=== PATIENT | male | born 1960 | race Caucasian/White ===

== ENCOUNTER 2020-02-10 16:11 | Emergency (ER) | payer MEDICARE ==
[~2020-02-10] VITALS: Ht 185.4 cm; Wt 96.0 kg
[~2020-02-10 16:11] MED LIST: CLON1TAB PO; QUET400T7 PO
[2020-02-10 16:13] VITALS: BP 126/71
[2020-02-10 17:21] LABS: BASOPHILS # (AUTO) 0.09 x10^3/uL (0-0.1); BASOPHILS % (AUTO) 1 % (0-1); EOSINOPHILS # (AUTO) 0.34 x10^3/uL (0-0.4); EOSINOPHILS % (AUTO) 3 % (1-7); LYMPHOCYTES # (AUTO) 3.22 x10^3/uL (1-3.4); LYMPHOCYTES % (AUTO) 27 % (22-44); MD NO; MEAN CORPUSCULAR HEMOGLOBIN 31.1 pg (27.5-34.5); MEAN CORPUSCULAR HGB CONC 33.4 g/dL (33.2-36.2); MEAN CORPUSCULAR VOLUME 93.3 fL (81-97); MEAN PLATELET VOLUME 7.4 fL (7.4-10.4); MONOCYTES % (AUTO) 10 % (2-9); NEUTROPHILS % (AUTO) 60 % (42-75); PLATELET COUNT 329 x10^3/uL (130-400); RED BLOOD COUNT 4.39 x10^6/uL (4.38-5.82); RED CELL DISTRIBUTION WIDTH 14.5 % (9.4-14.8)
[2020-02-10 17:31] LABS: ALANINE AMINOTRANSFERASE 33 U/L (12-78); ALBUMIN 3.9 g/dL (3.4-5.0); ANION GAP 4 mmol/L (5-15); CALCIUM 9.3 mg/dL (8.5-10.1); CHLORIDE 108 mmol/L (98-107); CREATININE 1.01 mg/dL (0.7-1.3)
[2020-02-10 17:34] LABS: ALKALINE PHOSPHATASE 102 U/L (45-117); BILIRUBIN,TOTAL 0.7 mg/dL (0.2-1.0); TOTAL PROTEIN 8.5 g/dL (6.4-8.2)
--- NOTE | 2020-02-10 17:38 | NUR ---
SAMPLE STITCHER: PT TO ROOM FROM LOBBY AT THIS TIME
--- NOTE | 2020-02-10 17:49 | NUR ---
PT INFORMED ANA THAT HE WANTED A HAND JOB AND THEN PT PROCEEDED TO FORNICATE WITH AMBU BAG AND THEN PEED ON OTHE ADULT AMBU BAG. PT HAD SECURITY CALLED DUE TO INAPPROPRITATE BEHAVIOR. SAMY PORRAS MADE AWARE.
== END 2020-02-10 17:53 | disposition home or self-care (01) ==
LOC: ED 17:47
DX: R53.1 Weakness (principal); R53.83 Other fatigue
CPT/HCPCS: 36415; 80053; 85025; 99283

== ENCOUNTER 2020-03-06 17:05 | Inpatient (IN) | payer MEDICARE, MEDICAID ==
[~2020-03-06] VITALS: Ht 182.9 cm; Wt 11.7 kg
--- NOTE | 2020-03-06 20:21 | NUR ---
Break rn: Labs drawn at this time. No immediate needs from pt. Awaiting telepsych consult.
[2020-03-06 20:29] LABS: BASOPHILS # (AUTO) 0.04 x10^3/uL (0-0.1); BASOPHILS % (AUTO) 1 % (0-1); EOSINOPHILS # (AUTO) 0.26 x10^3/uL (0-0.4); EOSINOPHILS % (AUTO) 3 % (1-7); LYMPHOCYTES # (AUTO) 2.39 x10^3/uL (1-3.4); LYMPHOCYTES % (AUTO) 27 % (22-44); MD NO; MEAN CORPUSCULAR HEMOGLOBIN 30.4 pg (27.5-34.5); MEAN PLATELET VOLUME 7.4 fL (7.4-10.4); MONOCYTES # (AUTO) 1.03 x10^3/uL (0.2-0.8); MONOCYTES % (AUTO) 12 % (2-9); NEUTROPHILS # (AUTO) 5.13 x10^3/uL (1.8-6.8); NEUTROPHILS % (AUTO) 58 % (42-75); PLATELET COUNT 269 x10^3/uL (130-400); RED BLOOD COUNT 3.71 x10^6/uL (4.38-5.82); RED CELL DISTRIBUTION WIDTH 13.9 % (9.4-14.8)
[2020-03-06 20:38] LABS: ALBUMIN 2.9 g/dL (3.4-5.0); ANION GAP 7 mmol/L (5-15); CHLORIDE 109 mmol/L (98-107); SALICYLATE LEVEL < 1.7 mg/dL (2.8-20.0)
--- NOTE | 2020-03-06 21:23 | NUR ---
PSYCH CONSULT TAKING PLACE
[2020-03-06] MEDS ORDERED: SODIUM CHLORIDE 0.9% 1,000ML IVBOLUS ONE (23:00)
[2020-03-06] MEDS ORDERED: IBUPROFEN 200 MG TABLET ONE (23:50)
--- NOTE | 2020-03-06 23:52 | NUR ---
JUICE PROVIDED TO PATIENT. UA SENT. PT CONTINUES TO HAVE DISORGANIZED THOUGHTS AND AUDITORY HALLUCINATIONS
[2020-03-06 23:59] LABS: MICROSCOPIC INDICATED
[2020-03-07] MEDS ORDERED: IBUPROFEN 200 MG TABLET PO ONE
[2020-03-07 00:07] LABS: AMPHETAMINE SCREEN, URINE Negative (Negative); BARBITURATE SCREEN, URINE Negative (Negative); BENZODIAZEPINE SCREEN, URINE Negative (Negative); CANNABINOID SCREEN, URINE Negative (Negative); COCAINE SCREEN, URINE Negative (Negative); METHADONE SCREEN, URINE Negative (Negative); OPIATE SCREEN, URINE Negative (Negative)
[2020-03-07] MEDS ORDERED: LORazepam 1MG TABLET PO ONE (01:30)
--- NOTE | 2020-03-07 01:36 | NUR ---
PT WANDERED DOWN HALLWAY, DISORRIENTED. WHEN RETURNING TO HIS ROOM, PT WALKED INTO INCORRECT ROOM AND BEGAN VULGARLY YELLING AT [employer]S STAFF, ACCUSING THEM OF TAKING HIS BELONGINGS. SECURITY WAS CALLED. PT REDIRECTED BACK INTO ROOM BY NURSE AND PROVIDED FOOD. PT STILL ACTIVELY HAVING AUDITORY HALLUCINATIONS, DENIES VISUAL HALLUCINATIONS. DEMETRIA LERNER AND CHARGE NURSE AWARE.
[2020-03-07] MEDS ORDERED: LORazepam 1MG TABLET ONE (01:40)
--- NOTE | 2020-03-07 01:47 | NUR ---
REPORT RECEIVED FROM CHIQUITA RUVALCABA.
--- NOTE | 2020-03-07 01:50 | NUR ---
PT MOVED TO ROOM 40 FOR CLOSER OBSERVATION. PT PROVIDED WITH WARM BLANKETS AND PILLOWS. DENIES ANY OTHER NEEDS AT THIS TIME. WILL CONTINUE TO MONITOR. Addendum: 03/07/20 at 0346 by BRENDA MOVED TO ROOM 38 NOT 40
--- NOTE | 2020-03-07 03:19 | NUR ---
PT SLEEPING, RESPIRATIONS EVEN AND UNLABORED. BEING MONITORED IN A [place] ROOM AT THIS TIME.
--- NOTE | 2020-03-07 04:21 | NUR ---
PT CONTINUES TO SLEEP. NO DISTRESS NOTED. ALL VITALS STABLE. WILL CONTINUE TO MONITOR.
[2020-03-07] MEDS: LACTATED RINGERS 1,000 ML IV SCH ×2 (05:00→17:07)
[2020-03-07] MEDS ORDERED: ONDANSETRON 2MG/ML, 2ML IVPush PRN (05:00)
[2020-03-07] MEDS ORDERED: LABETALOL 5MG/ML, 20ML IVPush PRN (05:00)
[2020-03-07 05:15] LABS: POTASSIUM,URINE RANDOM 46 mmol/L; SODIUM,URINE RANDOM 26 mmol/L
[2020-03-07 05:19] LABS: ANION GAP 7 mmol/L (5-15); CALCIUM 7.7 mg/dL (8.5-10.1); CHLORIDE 113 mmol/L (98-107); CREATININE 2.17 mg/dL (0.7-1.3)
[2020-03-07 05:24] LABS: CHLORIDE,URINE RANDOM < 10 mmol/L
--- NOTE | 2020-03-07 05:36 | NUR ---
PT BELONGINGS WERE PLACED IN LOCKER, 5 BAGS TO INCLUDE 4 PATIENT BELONGINGS BAGS AND ONE RED YVON ACES DUFFEL BAG. THE PATIENT BELONGINGS BAG INCLUDE A WALLET (PT OFFERED TO HAVE SECURITY TAKE IT, HOWEVER REFUSED), CLOTHING, SHOES, 2 JACKETS AND 1 BOOMBOX.
--- NOTE | 2020-03-07 06:39 | NUR ---
REPORT TO CHIQUITA SHELDON.
[2020-03-07 07:49] VITALS: BP 117/72
[2020-03-07 13:47] VITALS: BP 106/59
[2020-03-07] MEDS: ACETAMINOPHEN 325 MG TABLET PO PRN (17:11)
[2020-03-07 18:29] VITALS: BP 134/84
[2020-03-07] MEDS ORDERED: ZIPRASIDONE 20 MG INJ IM ONE (21:00)
[2020-03-08 00:34] VITALS: BP 115/72
[2020-03-08] MEDS: LACTATED RINGERS 1,000 ML IV SCH (04:46)
[2020-03-08 06:34] VITALS: BP 125/60
[2020-03-08 07:02] LABS: ANION GAP 10 mmol/L (5-15); CALCIUM 7.5 mg/dL (8.5-10.1); CHLORIDE 112 mmol/L (98-107)
[2020-03-08 07:03] LABS: CREATININE 1.57 mg/dL (0.7-1.3)
[2020-03-08] MEDS: QUETIAPINE 25MG TABLET PO SCH ×2 (08:40→19:33)
[2020-03-08] MEDS: SODIUM CHLORIDE 0.45% 1,000 ML IV SCH ×2 (08:40→19:34)
[2020-03-08] MEDS ORDERED: ZIPRASIDONE 20 MG INJ IM PRN (15:00)
[2020-03-08] MEDS: SODIUM BICARBONATE 650 MG TABLET PO SCH (19:33)
[2020-03-08 20:38] VITALS: BP 119/50
[2020-03-09 00:26] VITALS: BP 109/51
[2020-03-09 06:24] LABS: CHLORIDE 109 mmol/L (98-107)
[2020-03-09 06:44] LABS: ANION GAP 10 mmol/L (5-15); CALCIUM 7.6 mg/dL (8.5-10.1); CREATININE 1.42 mg/dL (0.7-1.3)
[2020-03-09 07:09] VITALS: BP 136/84
[2020-03-09] MEDS: QUETIAPINE 25MG TABLET PO SCH ×2 (07:57→21:07)
[2020-03-09] MEDS: SODIUM BICARBONATE 650 MG TABLET PO SCH ×2 (07:57→21:07)
[2020-03-09 09:31] LABS: BASOPHILS # (AUTO) 0.04 x10^3/uL (0-0.1); BASOPHILS % (AUTO) 1 % (0-1); EOSINOPHILS % (AUTO) 0 % (1-7); LYMPHOCYTES # (AUTO) 0.81 x10^3/uL (1-3.4); LYMPHOCYTES % (AUTO) 9 % (22-44); MD NO; MEAN CORPUSCULAR HGB CONC 32.7 g/dL (33.2-36.2); MEAN PLATELET VOLUME 8.4 fL (7.4-10.4); MONOCYTES # (AUTO) 0.75 x10^3/uL (0.2-0.8); MONOCYTES % (AUTO) 8 % (2-9); NEUTROPHILS # (AUTO) 7.91 x10^3/uL (1.8-6.8); NEUTROPHILS % (AUTO) 83 % (42-75); PLATELET COUNT 233 x10^3/uL (130-400); RED BLOOD COUNT 3.52 x10^6/uL (4.38-5.82)
[2020-03-09] MEDS: ACETAMINOPHEN 325 MG TABLET PO PRN ×2 (09:48→21:08)
[2020-03-09] MEDS: CEFTRIAXONE PMX 1GM/50ML 50 ML IV SCH (10:44)
[2020-03-09 11:03] LABS: C-REACTIVE PROTEIN, QUANT 7.5 mg/dL (0.02-0.49)
[2020-03-09] MEDS: AZITHROMYCIN 500 MG in SODIUM CHLORIDE 0.9% 250 ML IV SCH (11:29)
[2020-03-09 15:54] VITALS: BP 114/64
[2020-03-09 19:07] VITALS: BP 112/54
[2020-03-09] MEDS: HEPARIN 5,000 UNITS/ML, 1ML SQ SCH (21:08)
[2020-03-10] VITALS (8 sets, daily range): BP systolic 89–139; BP diastolic 50–78
[2020-03-10 05:19] LABS: BASOPHILS # (AUTO) 0.03 x10^3/uL (0-0.1); BASOPHILS % (AUTO) 0 % (0-1); EOSINOPHILS % (AUTO) 0 % (1-7); LYMPHOCYTES # (AUTO) 1.79 x10^3/uL (1-3.4); LYMPHOCYTES % (AUTO) 16 % (22-44); MD NO; MEAN CORPUSCULAR HEMOGLOBIN 29.6 pg (27.5-34.5); MEAN CORPUSCULAR HGB CONC 32.1 g/dL (33.2-36.2); MEAN PLATELET VOLUME 8.3 fL (7.4-10.4); MONOCYTES # (AUTO) 0.48 x10^3/uL (0.2-0.8); MONOCYTES % (AUTO) 4 % (2-9); NEUTROPHILS # (AUTO) 8.62 x10^3/uL (1.8-6.8); NEUTROPHILS % (AUTO) 79 % (42-75); PLATELET COUNT 221 x10^3/uL (130-400); RED BLOOD COUNT 3.86 x10^6/uL (4.38-5.82); RED CELL DISTRIBUTION WIDTH 13.8 % (9.4-14.8)
[2020-03-10 05:32] LABS: CHLORIDE 107 mmol/L (98-107)
[2020-03-10 05:39] LABS: ALANINE AMINOTRANSFERASE 16 U/L (12-78); ALBUMIN 2.3 g/dL (3.4-5.0); ALKALINE PHOSPHATASE 87 U/L (45-117); ANION GAP 9 mmol/L (5-15); BILIRUBIN,TOTAL 0.4 mg/dL (0.2-1.0); CALCIUM 7.5 mg/dL (8.5-10.1); CREATININE 1.93 mg/dL (0.7-1.3); TOTAL PROTEIN 6.8 g/dL (6.4-8.2)
[2020-03-10] MEDS: HEPARIN 5,000 UNITS/ML, 1ML SQ SCH ×2 (08:14→20:54)
[2020-03-10] MEDS: SODIUM BICARBONATE 650 MG TABLET PO SCH ×2 (08:15→20:54)
[2020-03-10] MEDS: QUETIAPINE 25MG TABLET PO SCH ×2 (08:15→20:53)
[2020-03-10] MEDS ORDERED: BUDESONIDE 0.5 MG/2 ML INHA INH SCH (11:00)
[2020-03-10] MEDS: CEFTRIAXONE PMX 1GM/50ML 50 ML IV SCH (11:27)
[2020-03-10] MEDS: AZITHROMYCIN 500 MG in SODIUM CHLORIDE 0.9% 250 ML IV SCH ×2 (12:42→23:24)
[2020-03-10] MEDS: ACETAMINOPHEN 325 MG TABLET PO PRN (12:42)
[2020-03-10] MEDS ORDERED: SODIUM CHLORIDE 0.9% 1,000ML IVBOLUS ONE (18:00)
[2020-03-10] MEDS ORDERED: OMNIPAQUE 350 MG/ML, 75ML BOTTLE ONE (22:56)
[2020-03-11 00:48] VITALS: BP 121/75
[2020-03-11 06:05] LABS: BASOPHILS # (AUTO) 0.01 x10^3/uL (0-0.1); BASOPHILS % (AUTO) 0 % (0-1); EOSINOPHILS % (AUTO) 0 % (1-7); LYMPHOCYTES # (AUTO) 1.42 x10^3/uL (1-3.4); LYMPHOCYTES % (AUTO) 16 % (22-44); MD NO; MEAN CORPUSCULAR HGB CONC 32.8 g/dL (33.2-36.2); MEAN PLATELET VOLUME 8.8 fL (7.4-10.4); MONOCYTES # (AUTO) 0.87 x10^3/uL (0.2-0.8); MONOCYTES % (AUTO) 10 % (2-9); NEUTROPHILS # (AUTO) 6.63 x10^3/uL (1.8-6.8); NEUTROPHILS % (AUTO) 74 % (42-75); PLATELET COUNT 199 x10^3/uL (130-400); RED BLOOD COUNT 3.19 x10^6/uL (4.38-5.82)
[2020-03-11 06:09] LABS: ALBUMIN 1.9 g/dL (3.4-5.0); ANION GAP 10 mmol/L (5-15); CALCIUM 7.6 mg/dL (8.5-10.1); CHLORIDE 109 mmol/L (98-107); CREATININE 1.44 mg/dL (0.7-1.3)
[2020-03-11 06:52] VITALS: BP 95/55
[2020-03-11] MEDS: FUROSEMIDE 40 MG/4 ML IV SCH ×2 (10:33→17:33)
[2020-03-11] MEDS: SODIUM BICARBONATE 650 MG TABLET PO SCH ×2 (10:34→20:30)
[2020-03-11] MEDS: QUETIAPINE 25MG TABLET PO SCH ×2 (10:34→20:30)
[2020-03-11] MEDS: HEPARIN 5,000 UNITS/ML, 1ML SQ SCH ×2 (10:34→20:31)
[2020-03-11] MEDS: CEFTRIAXONE PMX 1GM/50ML 50 ML IV SCH (11:39)
[2020-03-11 14:04] VITALS: BP 97/61
[2020-03-11] MEDS: FLUTICASONE FUROATE 100MCG/INH INH SCH (17:33)
[2020-03-11 19:32] VITALS: BP 114/68
[2020-03-12 00:11] VITALS: BP 116/72
[2020-03-12 07:14] VITALS: BP 109/68
[2020-03-12 07:56] LABS: ANION GAP 11 mmol/L (5-15); CHLORIDE 111 mmol/L (98-107); CREATININE 1.17 mg/dL (0.7-1.3)
[2020-03-12 07:57] LABS: BASOPHILS # (AUTO) 0.04 x10^3/uL (0-0.1); BASOPHILS % (AUTO) 1 % (0-1); EOSINOPHILS # (AUTO) 0.06 x10^3/uL (0-0.4); EOSINOPHILS % (AUTO) 1 % (1-7); LYMPHOCYTES # (AUTO) 2.31 x10^3/uL (1-3.4); LYMPHOCYTES % (AUTO) 33 % (22-44); MD NO; MEAN CORPUSCULAR HEMOGLOBIN 29.8 pg (27.5-34.5); MEAN CORPUSCULAR HGB CONC 32.7 g/dL (33.2-36.2); MEAN PLATELET VOLUME 8.2 fL (7.4-10.4); MONOCYTES # (AUTO) 0.75 x10^3/uL (0.2-0.8); MONOCYTES % (AUTO) 11 % (2-9); NEUTROPHILS # (AUTO) 3.84 x10^3/uL (1.8-6.8); NEUTROPHILS % (AUTO) 55 % (42-75); PLATELET COUNT 241 x10^3/uL (130-400); RED BLOOD COUNT 3.21 x10^6/uL (4.38-5.82); RED CELL DISTRIBUTION WIDTH 13.7 % (9.4-14.8)
[2020-03-12] MEDS: FUROSEMIDE 40 MG/4 ML IV SCH (09:54)
[2020-03-12] MEDS: SODIUM BICARBONATE 650 MG TABLET PO SCH ×2 (10:20→20:05)
[2020-03-12] MEDS: QUETIAPINE 25MG TABLET PO SCH (10:20)
[2020-03-12] MEDS: HEPARIN 5,000 UNITS/ML, 1ML SQ SCH ×2 (10:20→20:07)
[2020-03-12] MEDS: CEFTRIAXONE PMX 1GM/50ML 50 ML IV SCH (10:54)
[2020-03-12] MEDS: FLUTICASONE FUROATE 100MCG/INH INH SCH (10:54)
[2020-03-12] MEDS ORDERED: RISPERIDONE 1 MG TAB.RAPDIS PO PRN (11:00)
[2020-03-12] MEDS ORDERED: QUETIAPINE 25MG TABLET PO SCH ×2 (11:00→21:00)
[2020-03-12] MEDS: BENZTROPINE 1 MG TABLET PO SCH ×4 (11:30→20:07)
[2020-03-12] MEDS: AZITHROMYCIN 500 MG in SODIUM CHLORIDE 0.9% 250 ML IV SCH (11:41)
[2020-03-12] MEDS: ACETAMINOPHEN 325 MG TABLET PO PRN (11:41)
[2020-03-12] MEDS: LORazepam 1MG TABLET PO PRN (11:41)
[2020-03-12 12:38] VITALS: BP 115/75
[2020-03-12] MEDS ORDERED: FUROSEMIDE 40 MG/4 ML IV SCH (17:00)
[2020-03-12 18:44] VITALS: BP 134/85
[2020-03-12] MEDS: DIVALPROEX 500 MG TAB.ER.24H PO SCH (20:05)
[2020-03-13 01:20] VITALS: BP 141/86
[2020-03-13 08:32] VITALS: BP 139/76
[2020-03-13] MEDS: SODIUM BICARBONATE 650 MG TABLET PO SCH ×2 (09:56→21:29)
[2020-03-13] MEDS: BENZTROPINE 1 MG TABLET PO SCH ×3 (09:56→21:34)
[2020-03-13] MEDS: FLUTICASONE FUROATE 100MCG/INH INH SCH (09:56)
[2020-03-13] MEDS: OLANZAPINE 10 MG TABLET PO SCH (09:56)
[2020-03-13] MEDS: CEFTRIAXONE PMX 1GM/50ML 50 ML IV SCH (09:57)
[2020-03-13] MEDS: HEPARIN 5,000 UNITS/ML, 1ML SQ SCH ×2 (10:04→21:29)
[2020-03-13] MEDS: AZITHROMYCIN 500 MG in SODIUM CHLORIDE 0.9% 250 ML IV SCH (10:31)
[2020-03-13 14:44] VITALS: BP 136/79
[2020-03-13] MEDS: DIVALPROEX 500 MG TAB.ER.24H PO SCH (21:29)
[2020-03-13 21:30] VITALS: BP 127/82
[2020-03-14 01:35] VITALS: BP 126/77
[2020-03-14] MEDS: ACETAMINOPHEN 325 MG TABLET PO PRN (05:29)
[2020-03-14] MEDS: OLANZAPINE 10 MG TABLET PO SCH (07:03)
[2020-03-14 07:43] VITALS: BP 136/81
[2020-03-14] MEDS: LORazepam 1MG TABLET PO PRN (07:53)
[2020-03-14] MEDS: FLUTICASONE FUROATE 100MCG/INH INH SCH (07:54)
[2020-03-14] MEDS: SODIUM BICARBONATE 650 MG TABLET PO SCH ×2 (07:55→21:00)
[2020-03-14] MEDS: HEPARIN 5,000 UNITS/ML, 1ML SQ SCH ×2 (07:56→21:00)
[2020-03-14] MEDS: CEFTRIAXONE PMX 1GM/50ML 50 ML IV SCH (09:58)
[2020-03-14] MEDS: OLANZAPINE 10 MG INJ IM PRN (09:58)
[2020-03-14 12:17] VITALS: BP 119/68
[2020-03-14 18:59] VITALS: BP 144/88
[2020-03-14] MEDS: DIVALPROEX 500 MG TAB.ER.24H PO SCH (21:00)
[2020-03-15 03:54] VITALS: BP 135/91
[2020-03-15] MEDS: ACETAMINOPHEN 325 MG TABLET PO PRN (05:28)
[2020-03-15] MEDS: FLUTICASONE FUROATE 100MCG/INH INH SCH (08:40)
[2020-03-15] MEDS: SODIUM BICARBONATE 650 MG TABLET PO SCH ×2 (08:40→21:00)
[2020-03-15] MEDS: OLANZAPINE 10 MG TABLET PO SCH (08:40)
[2020-03-15] MEDS: HEPARIN 5,000 UNITS/ML, 1ML SQ SCH ×3 (08:41→21:30)
[2020-03-15] MEDS: OLANZAPINE 10 MG INJ IM PRN (12:33)
[2020-03-15 13:06] VITALS: BP 150/84
[2020-03-15] MEDS ORDERED: LORazepam 2 MG/ML, 1ML IM ONE (13:30)
[2020-03-15] MEDS ORDERED: DIPHENHYDRAMINE 50 MG/ML, 1ML IM ONE (13:30)
[2020-03-15] MEDS ORDERED: LORazepam 2 MG/ML, 1ML IVPush PRN (13:30)
[2020-03-15 20:12] VITALS: BP 174/96
[2020-03-15] MEDS: DIVALPROEX 500 MG TAB.ER.24H PO SCH (21:00)
[2020-03-16 01:13] VITALS: BP 155/91
[2020-03-16] MEDS: ACETAMINOPHEN 325 MG TABLET PO PRN ×2 (03:39→23:59)
[2020-03-16] MEDS: HEPARIN 5,000 UNITS/ML, 1ML SQ SCH ×3 (05:12→21:27)
[2020-03-16 05:35] LABS: ANION GAP 7 mmol/L (5-15); CALCIUM 7.9 mg/dL (8.5-10.1); CHLORIDE 115 mmol/L (98-107)
[2020-03-16 05:36] LABS: CREATININE 1.12 mg/dL (0.7-1.3)
[2020-03-16 07:07] VITALS: BP 139/93
[2020-03-16] MEDS: OLANZAPINE 10 MG TABLET PO SCH (08:37)
[2020-03-16] MEDS: FLUTICASONE FUROATE 100MCG/INH INH SCH (09:00)
[2020-03-16 19:58] VITALS: BP 150/90
[2020-03-16] MEDS: DIVALPROEX 500 MG TAB.ER.24H PO SCH (21:27)
[2020-03-17] MEDS: HEPARIN 5,000 UNITS/ML, 1ML SQ SCH ×3 (05:19→21:30)
[2020-03-17] MEDS: ACETAMINOPHEN 325 MG TABLET PO PRN ×3 (06:02→23:31)
[2020-03-17 08:53] VITALS: BP 143/82
[2020-03-17] MEDS: OLANZAPINE 10 MG TABLET PO SCH (09:57)
[2020-03-17] MEDS: FLUTICASONE FUROATE 100MCG/INH INH SCH (09:57)
[2020-03-17 17:17] VITALS: BP 147/93
[2020-03-17 19:01] VITALS: BP 152/88
[2020-03-17] MEDS: DIVALPROEX 500 MG TAB.ER.24H PO SCH (21:42)
[2020-03-18 00:31] VITALS: BP 149/89
[2020-03-18 00:32] VITALS: BP 149/89
[2020-03-18] MEDS: HEPARIN 5,000 UNITS/ML, 1ML SQ SCH (05:22)
[2020-03-18 06:52] VITALS: BP 160/83
[2020-03-18] MEDS: OLANZAPINE 10 MG TABLET PO SCH (08:50)
[2020-03-18] MEDS: FLUTICASONE FUROATE 100MCG/INH INH SCH (08:51)
[2020-03-18] MEDS ORDERED: DIVA500T4 PO (12:43)
[2020-03-18] MEDS ORDERED: FLUT100B INH (12:43)
[2020-03-18] MEDS ORDERED: OLAN10TA9 PO (12:43)
[2020-03-18 13:27] VITALS: BP 140/82
== END 2020-03-18 14:13 | DRG 682 ==
LOC: ED 23:59 → EDIP 03-07 00:50 → 3N 03-07 07:01 → 4NW 03-09 11:26 → 3N 03-10 19:50
PROVIDERS: ADMIT Family Medicine; ATTEND Hospitalist
DX: N17.0 Acute kidney failure with tubular necrosis (principal); J96.01 Acute respiratory failure with hypoxia; J18.9 Pneumonia, unspecified organism; E44.1 Mild protein-calorie malnutrition; E87.2 Acidosis; J90 Pleural effusion, not elsewhere classified; J98.11 Atelectasis; F25.9 Schizoaffective disorder, unspecified; D64.9 Anemia, unspecified; R31.29 Other microscopic hematuria; T39.395A Adverse effect of other nonsteroidal anti-inflammatory drugs [NSAID], initial encounter; D72.810 Lymphocytopenia; E87.70 Fluid overload, unspecified; F17.210 Nicotine dependence, cigarettes, uncomplicated; F32.9 Major depressive disorder, single episode, unspecified; G24.01 Drug induced subacute dyskinesia; F41.9 Anxiety disorder, unspecified; R79.82 Elevated C-reactive protein (CRP); E66.9 Obesity, unspecified; R45.1 Restlessness and agitation; Z20.828 Contact with and (suspected) exposure to other viral communicable diseases; Z59.0 Homelessness; Z63.8 Other specified problems related to primary support group; Z85.47 Personal history of malignant neoplasm of testis; Z91.5 Personal history of self-harm; Z88.8 Allergy status to other drugs, medicaments and biological substances; Z68.35 Body mass index [BMI] 35.0-35.9, adult
CPT/HCPCS: 36415; 71045; 71275; 76770; 80048; 80053; 80069; 80164; 80307; 81001; 82040; 82436; 82550; 82570; 82728; 83735; 84133; 84145; 84300; 85025; 85379; 86140; 87040; 87635; 93005; 93306; 96360; 96361; 99285; G0378; J0456; J0696; J1644; J1940; J3486; Q9967; J1200; J2060; J7030; J7050; J7120

== ENCOUNTER 2020-10-21 20:33 | Emergency (ER) | payer MEDICARE, MEDICAID ==
[~2020-10-21] VITALS: Ht 182.9 cm; Wt 94.3 kg
[~2020-10-21 20:33] MED LIST changes: +DIVA500T4 PO; +FLUT100B INH; +OLAN10TA9 PO
[2020-10-21 20:45] VITALS: BP 129/69
--- NOTE | 2020-10-21 20:58 | NUR ---
prosecuting attorney: pt from lobby to room 26
[2020-10-21] MEDS ORDERED: LIDODERM 5% PATCH TD ONE ×2 (21:00→21:39)
[2020-10-21] MEDS ORDERED: METHOCARBAMOL 750 MG TABLET PO ONE (21:00)
[2020-10-21] MEDS ORDERED: OLANZAPINE 10 MG TABLET PO ONE (21:34)
[2020-10-21] MEDS ORDERED: OLANZAPINE 10 MG TABLET ONE (21:38)
[2020-10-21] MEDS ORDERED: METHOCARBAMOL 750 MG TABLET ONE (21:39)
== END 2020-10-21 21:58 | disposition home or self-care (01) ==
LOC: ED 21:55
DX: M54.2 Cervicalgia (principal); G89.29 Other chronic pain; F17.200 Nicotine dependence, unspecified, uncomplicated; Z76.0 Encounter for issue of repeat prescription
CPT/HCPCS: 99284

== ENCOUNTER 2020-11-06 17:51 | Emergency (ER) | payer MEDICARE, MEDICAID ==
[~2020-11-06] VITALS: Ht 185.4 cm; Wt 110.0 kg
[2020-11-06 18:13] LABS: BASOPHILS % (AUTO) 1 % (0-1); EOSINOPHILS % (AUTO) 4 % (1-7); LYMPHOCYTES % (AUTO) 21 % (22-44); MEAN CORPUSCULAR HEMOGLOBIN 30.6 pg (27.5-34.5); MEAN CORPUSCULAR HGB CONC 33.8 g/dL (33.2-36.2); MEAN PLATELET VOLUME 6.8 fL (7.4-10.4); MONOCYTES % (AUTO) 9 % (2-9); NEUTROPHILS % (AUTO) 66 % (42-75); PLATELET COUNT 369 x10^3/uL (130-400); RED BLOOD COUNT 3.99 x10^6/uL (4.38-5.82); RED CELL DISTRIBUTION WIDTH 14.9 % (9.4-14.8)
[2020-11-06 18:25] LABS: ALANINE AMINOTRANSFERASE 17 U/L (12-78); ALBUMIN 3.1 g/dL (3.4-5.0); ANION GAP 5 mmol/L (5-15); CALCIUM 8.3 mg/dL (8.5-10.1); CHLORIDE 110 mmol/L (98-107)
[2020-11-06 18:28] LABS: ALKALINE PHOSPHATASE 122 U/L (45-117); BILIRUBIN,TOTAL 0.2 mg/dL (0.2-1.0); CREATININE 0.82 mg/dL (0.7-1.3); TOTAL PROTEIN 7.1 g/dL (6.4-8.2)
[2020-11-06 18:29] LABS: SALICYLATE LEVEL < 1.7 mg/dL (2.8-20.0)
--- NOTE | 2020-11-06 18:33 | NUR ---
PT LYING IN BED
--- NOTE | 2020-11-06 18:33 | NUR ---
AGATHA FROM [facility]. PT STATES THAT HES BEEN EXPOSED TO RADIATION FOR 3 YEARS AND THAT HE IS SICK AND HE IS TIRED. PT SPEAKING FAST AND HARD TO UNDERDSTAND. STATES HES BEEN OFF HIS MEDICATIONS FOR A WHILE.
[2020-11-06 18:35] LABS: MD SCAN
--- NOTE | 2020-11-06 18:53 | NUR ---
PT RESTING IN NAD, VSS.
--- NOTE | 2020-11-06 19:29 | NUR ---
PT SLEEPING IN BED
--- NOTE | 2020-11-06 20:18 | NUR ---
PT LOUD AND DISRUPTIVE. YELLING AT NURSES. SECURITY AT ROOM TO HELP ESCORT PT OUT OF ED.
[2020-11-06 20:20] VITALS: BP 105/76
== END 2020-11-06 20:25 | disposition home or self-care (01) ==
LOC: ED 18:29
DX: R53.1 Weakness (principal); F25.9 Schizoaffective disorder, unspecified; R53.83 Other fatigue; R05 Cough; Z72.9 Problem related to lifestyle, unspecified; I10 Essential (primary) hypertension; F17.210 Nicotine dependence, cigarettes, uncomplicated
CPT/HCPCS: 36415; 71045; 80053; 80143; 80179; 80320; 85025; 99284; 99406; G0480

== ENCOUNTER 2020-11-15 23:37 | Emergency (ER) | payer MEDICARE, MEDICAID ==
[~2020-11-15] VITALS: Ht 177.8 cm; Wt 95.0 kg
[2020-11-15 23:50] VITALS: BP 123/80
--- NOTE | 2020-11-15 23:53 | NUR ---
TP RN: PT ARRIVES TO ED ON LEGAL HOLD BY PD. LEGAL HOLD ON CHART.
--- NOTE | 2020-11-16 00:03 | NUR ---
PT AMBULATORY INTO ED C [facility]. WAS PLACED ON L2K & RELEASED FROM CUSTODY. LEGAL HOLD FOR PTS INABILITY TO CARE FOR SELF. PT STATES HE IS HOMELESS, BEEN HOMELESS SINCE FOR YEARS, SINCE HE LEFT [facility]. PT CALM & COOPERATIVE. CHANGED INTO GOWN. 2 BAGS LABELED & PLACED IN LOCKER, BIN #3. PT UNABLE TO PROVIDE URINE SAMPLE. GIVEN WARM BLANKETS. PT REQUESTING FOOD, ATTEMPTING TO MAKE PT AWARE OF PLAN OF CARE. SITTER OUTSIDE OF ROOM.
--- NOTE | 2020-11-16 00:30 | NUR ---
AT , PLAN TO LIFT HOLD & DC PT HOME. 2 BAGS OF BELONGINGS RETURNED & SANDWICH PROVIDED.
== END 2020-11-16 00:44 | disposition home or self-care (01) ==
LOC: ED 11-16 00:15
DX: F25.0 Schizoaffective disorder, bipolar type (principal); Z72.9 Problem related to lifestyle, unspecified; Z59.0 Homelessness
CPT/HCPCS: 99285

== ENCOUNTER 2020-11-26 23:56 | Emergency (ER) | payer MEDICARE, MEDICAID ==
[~2020-11-26] VITALS: Ht 175.3 cm; Wt 94.4 kg
[~2020-11-26 23:56] MED LIST changes: +OLAN10TA69 PO; -OLAN10TA9 PO
[2020-11-26 23:58] VITALS: BP 119/73
== END 2020-11-27 01:20 | disposition home or self-care (01) ==
LOC: ED 11-27 00:15
DX: F15.150 Other stimulant abuse with stimulant-induced psychotic disorder with delusions (principal); R00.0 Tachycardia, unspecified; I10 Essential (primary) hypertension; F20.9 Schizophrenia, unspecified
CPT/HCPCS: 99281

== ENCOUNTER 2020-12-30 23:23 | Emergency (ER) | payer MEDICARE, MEDICAID ==
[~2020-12-30] VITALS: Ht 177.8 cm; Wt 93.4 kg
[~2020-12-30 23:23] MED LIST changes: -OLAN10TA69 PO; +OLAN10TA9 PO
[2020-12-30 23:29] VITALS: BP 121/61
--- NOTE | 2020-12-30 23:40 | NUR ---
PATIENT SEEN BY PA IN TRIAGE ROOM AND WAS SENT TO LOBBY.
--- NOTE | 2020-12-30 23:54 | NUR ---
PATIENT NOT IN THE LOBBY, BUT FOR DISCHARGE. ELOPED.
[2020-12-31] MEDS ORDERED: IBUPROFEN 600 MG TABLET PO ONE
== END 2020-12-31 00:06 | disposition left against medical advice (07) ==
LOC: ED 23:59
DX: M79.661 Pain in right lower leg (principal); M79.662 Pain in left lower leg; I10 Essential (primary) hypertension; F20.9 Schizophrenia, unspecified
CPT/HCPCS: 99282

== ENCOUNTER 2020-12-31 20:41 | Emergency (ER) | payer MEDICARE, MEDICAID ==
[~2020-12-31] VITALS: Ht 182.9 cm; Wt 94.1 kg
[2020-12-31 20:44] VITALS: BP 132/74
--- NOTE | 2020-12-31 23:34 | NUR ---
PT DISCHARGED AND REFUSING TO LEAVE AT THIS TIME. SECURITY CALLED FOR ASSISTANCE IN DISCHARGE.
== END 2020-12-31 23:36 | disposition home or self-care (01) ==
LOC: ED 20:44
DX: M79.605 Pain in left leg (principal); G89.29 Other chronic pain; I10 Essential (primary) hypertension; Z72.9 Problem related to lifestyle, unspecified; F17.210 Nicotine dependence, cigarettes, uncomplicated
CPT/HCPCS: 99281; 99406

== ENCOUNTER 2021-02-26 09:44 | Emergency (ER) | payer MEDICARE, MEDICAID ==
[~2021-02-26] VITALS: Ht 185.4 cm; Wt 80.6 kg
[2021-02-26 09:52] VITALS: BP 127/70
--- NOTE | 2021-02-26 10:15 | NUR ---
CRAWLING INSECTS FOUND ON PT. PT DIRTY, MULTIPLE SCRATCH HUGHES AND INSECT BITES TO FACE, TORSO, ARMS BILAT, LEGS BILAT. ANGRY RED RAISED RASH TO LT TORSO. PT SPEECH UNINTELLIGABLE. RESP UNLABORED. SIDE RAILS UP X2. PT IN ED ROOM 17
[2021-02-26 10:33] LABS: ANION GAP 6 mmol/L (5-15); CALCIUM 8.4 mg/dL (8.5-10.1); CHLORIDE 107 mmol/L (98-107)
--- NOTE | 2021-02-26 10:53 | NUR ---
PT NOT IN ED ROOM 17. ELOPED.
--- NOTE | 2021-02-26 11:10 | NUR ---
Patient eloped and ambulatory with steady gait.
== END 2021-02-26 11:12 | disposition home or self-care (01) ==
LOC: ED 11:06
DX: G92 Toxic encephalopathy (principal); E87.6 Hypokalemia; F15.10 Other stimulant abuse, uncomplicated; I10 Essential (primary) hypertension
CPT/HCPCS: 36415; 80048; 80320; 99283; G0480

== ENCOUNTER 2021-03-20 21:31 | Emergency (ER) | payer MEDICAID, MEDICARE ==
[~2021-03-20] VITALS: Ht 182.9 cm; Wt 82.0 kg
[~2021-03-20 21:31] MED LIST changes: +OLAN10TA69 PO; -OLAN10TA9 PO
--- NOTE | 2021-03-20 21:42 | NUR ---
AGATHA BY BYSTANDERS CALLING ON PT BECAUSE HE WAS WALKING DOWN THE STREET IN JUST A JACKET AND SHOES. PT STATES HE WAS KICKED OUT OF [facility] WHILE BEING SEEN FOR NECK PAIN. REPORTS HE HAS BEEN OUT OF MEDS SINCE SATURDAY. DENIES ETOH AND DURGS. PT APPEARS DELUSIONAL AND HAVIBNG AUDITORY HALLUCINATIONS PT IS YELLING AT STAFF INCOMPREHENSIBLE WORDS. ATTACHED TO MONITORS, VSS. NADN. BED IN LOW POSITON, RAILS ENGAGED. CALL LIGHT ON LAP. PERSDONAL BELONGING COLLECTED AND PUT INTO SECURE LOCKERS. PT HAD BROWN WALLET AND 3 DOLLARS. WCTM Addendum: 03/20/21 at 2143 by [email or web address] NO THOUGHTS OF SI AND HI.
[2021-03-20] MEDS ORDERED: LORazepam 1MG TABLET ONE (21:56)
[2021-03-20] MEDS ORDERED: LORazepam 1MG TABLET PO ONE (22:00)
[2021-03-20 22:52] LABS: BASOPHILS % (AUTO) 1 % (0-1); EOSINOPHILS % (AUTO) 2 % (1-7); LYMPHOCYTES % (AUTO) 16 % (22-44); MEAN CORPUSCULAR HEMOGLOBIN 27.6 pg (27.5-34.5); MEAN CORPUSCULAR HGB CONC 32.5 g/dL (33.2-36.2); MEAN PLATELET VOLUME 7.2 fL (7.4-10.4); MONOCYTES % (AUTO) 5 % (2-9); NEUTROPHILS % (AUTO) 77 % (42-75); PLATELET COUNT 420 x10^3/uL (130-400); RED BLOOD COUNT 3.84 x10^6/uL (4.38-5.82); RED CELL DISTRIBUTION WIDTH 18.3 % (9.4-14.8)
[2021-03-20 23:02] LABS: ALBUMIN 2.3 g/dL (3.4-5.0); ANION GAP 6 mmol/L (5-15); CALCIUM 7.7 mg/dL (8.5-10.1); CHLORIDE 104 mmol/L (98-107)
[2021-03-20 23:03] LABS: CREATININE 0.52 mg/dL (0.7-1.3)
[2021-03-20 23:04] LABS: SALICYLATE LEVEL < 1.7 mg/dL (2.8-20.0)
--- NOTE | 2021-03-20 23:36 | NUR ---
Pt brought in by EMS after wandering streets with barely any clothes on, bystanders called EMS. Pt discheveled, homeless. Denies drugs or etoh use. States he smokes 1/2 pack daily. Pt denies any PMH or psych hx, although, pt agitated upon arrival, having auditory/visual hallucinations and delusions, incomphrehensible speech. Pt given PO Ativan, has been sleeping since. Tolerating PO. Belongings secured in lock up. Pt denies SI/HI. Pt elected to hold onto what he says is $38 santana on him. Refused to have it locked up with the rest of his belongings.
[2021-03-20 23:46] VITALS: BP 126/61
--- NOTE | 2021-03-20 23:47 | NUR ---
Urine sent to lab at this time. Output 400mL
[2021-03-21 00:04] LABS: AMPHETAMINE SCREEN, URINE Negative (Negative); BARBITURATE SCREEN, URINE Negative (Negative); BENZODIAZEPINE SCREEN, URINE Negative (Negative); CANNABINOID SCREEN, URINE Negative (Negative); COCAINE SCREEN, URINE Negative (Negative); METHADONE SCREEN, URINE Negative (Negative); OPIATE SCREEN, URINE Negative (Negative)
--- NOTE | 2021-03-21 00:30 | NUR ---
Pt provided with sandwich. Toelrating PO well.
--- NOTE | 2021-03-21 03:05 | NUR ---
Patient/Caregiver given discharge instructions and they have confirmed that they understand the instructions. Patient ambulatory with steady gait. NAD, all questions answered appropriately, denies additional needs at this time. No personal belongings left in room after discharge.
== END 2021-03-21 03:06 | disposition home or self-care (01) ==
LOC: ED 21:43
DX: F25.8 Other schizoaffective disorders (principal); Z72.9 Problem related to lifestyle, unspecified; I10 Essential (primary) hypertension; F17.200 Nicotine dependence, unspecified, uncomplicated
CPT/HCPCS: 36415; 80048; 80299; 80307; 80320; 80329; 82040; 85025; 99283; G0480

== ENCOUNTER 2021-03-24 01:47 | Emergency (ER) | payer MEDICARE ==
[~2021-03-24] VITALS: Ht 188 cm; Wt 84.0 kg
[2021-03-24 01:50] VITALS: BP 133/76
== END 2021-03-24 02:53 | disposition left against medical advice (07) ==
LOC: ED 02:15
DX: R68.89 Other general symptoms and signs (principal); Z53.21 Procedure and treatment not carried out due to patient leaving prior to being seen by health care provider

== ENCOUNTER 2021-04-10 14:01 | Emergency (ER) | payer MEDICARE ==
[~2021-04-10] VITALS: Ht 188 cm; Wt 90.9 kg
--- NOTE | 2021-04-10 14:22 | NUR ---
DR. FARIAS IN TO EVAL PT. FOOD TRAY ORDERED PER .
[2021-04-10] MEDS ORDERED: LORazepam 1MG TABLET PO ONE (14:30)
[2021-04-10 14:34] LABS: BASOPHILS % (AUTO) 1 % (0-1); EOSINOPHILS % (AUTO) 5 % (1-7); LYMPHOCYTES % (AUTO) 32 % (22-44); MEAN CORPUSCULAR HEMOGLOBIN 27.8 pg (27.5-34.5); MEAN CORPUSCULAR HGB CONC 32.9 g/dL (33.2-36.2); MEAN PLATELET VOLUME 6.4 fL (7.4-10.4); MONOCYTES % (AUTO) 11 % (2-9); NEUTROPHILS % (AUTO) 52 % (42-75); PLATELET COUNT 292 x10^3/uL (130-400); RED BLOOD COUNT 3.62 x10^6/uL (4.38-5.82); RED CELL DISTRIBUTION WIDTH 18.8 % (9.4-14.8)
--- NOTE | 2021-04-10 14:35 | NUR ---
PT. AMBULATORY TO SHOWER ROOM WITH STEADY GAIT. TOWELS/WASHCLOTHS/SOAP PROVIDED. PT. SHOWERING SELF AT THIS TIME. URINE SAMPLE REQUESTED FROM PT.
[2021-04-10 14:46] LABS: ALBUMIN 2.7 g/dL (3.4-5.0); ANION GAP 8 mmol/L (5-15); CHLORIDE 110 mmol/L (98-107)
--- NOTE | 2021-04-10 14:48 | NUR ---
PT. REMAINS IN SHOWER. RN CHECKING ON PT. FREQUENTLY. PT. STEADY ON HIS FEET AND ABLE TO CONTINUE TO SHOWER SELF.
[2021-04-10 14:49] LABS: ALANINE AMINOTRANSFERASE 14 U/L (12-78); ALKALINE PHOSPHATASE 110 U/L (45-117); BILIRUBIN,TOTAL 0.4 mg/dL (0.2-1.0); CREATININE 0.53 mg/dL (0.7-1.3); SALICYLATE LEVEL < 1.7 mg/dL (2.8-20.0); TOTAL PROTEIN 6.8 g/dL (6.4-8.2)
--- NOTE | 2021-04-10 15:00 | NUR ---
Report received from Gi PORRAS, assuming care of pt at this time
--- NOTE | 2021-04-10 15:03 | NUR ---
pt back in room from shower, meal tray provided. pt aware of needed ua, ua supplies at bedside.
[2021-04-10] MEDS ORDERED: POTASSIUM CHLORIDE 20 MEQ PACKET PO ONE (15:30)
[2021-04-10] MEDS ORDERED: POTASSIUM CHLORIDE 20 MEQ PACKET ONE (15:33)
--- NOTE | 2021-04-10 15:59 | NUR ---
ua collected via straight cath and walked to lab at this time
[2021-04-10] MEDS ORDERED: LORazepam 1MG TABLET ONE (16:01)
--- NOTE | 2021-04-10 16:18 | NUR ---
psych PHARMACY DELIVERY DRIVERAna Laura Esparza at bedside for eval
[2021-04-10 16:24] LABS: AMPHETAMINE SCREEN, URINE Positive (Negative); BARBITURATE SCREEN, URINE Negative (Negative); BENZODIAZEPINE SCREEN, URINE Negative (Negative); CANNABINOID SCREEN, URINE Negative (Negative); COCAINE SCREEN, URINE Negative (Negative); METHADONE SCREEN, URINE Negative (Negative); OPIATE SCREEN, URINE Negative (Negative)
[2021-04-10] MEDS ORDERED: OLANZAPINE 5 MG TABLET ONE (16:43)
[2021-04-10] MEDS ORDERED: BENZTROPINE 1 MG TABLET ONE (16:43)
[2021-04-10] MEDS ORDERED: DIVALPROEX 500 MG TABLET.DR ONE (16:43)
--- NOTE | 2021-04-10 16:58 | NUR ---
pt medicated per order, plan to monitor then dc
[2021-04-10] MEDS ORDERED: DIVALPROEX 500 MG TABLET.DR PO SCH (17:00)
[2021-04-10] MEDS ORDERED: BENZTROPINE 1 MG TABLET PO SCH (17:00)
[2021-04-10] MEDS ORDERED: DIVALPROEX 500 MG TABLET.DR PO ONE (17:00)
[2021-04-10] MEDS ORDERED: OLANZAPINE 5 MG TABLET PO ONE (17:00)
[2021-04-10] MEDS ORDERED: BENZTROPINE 1 MG TABLET PO ONE (17:00)
[2021-04-10 17:43] VITALS: BP 116/85
--- NOTE | 2021-04-10 17:43 | NUR ---
pt sleeping in bed, nadn.
--- NOTE | 2021-04-10 18:33 | NUR ---
pt taken to dc accompanied by security.
== END 2021-04-10 18:36 | disposition home or self-care (01) ==
LOC: ED 18:07
DX: F25.9 Schizoaffective disorder, unspecified (principal); F15.10 Other stimulant abuse, uncomplicated; I10 Essential (primary) hypertension; F17.200 Nicotine dependence, unspecified, uncomplicated; Z91.14 Patient's other noncompliance with medication regimen
CPT/HCPCS: 36415; 80053; 80299; 80307; 80320; 80329; 85025; 99284; G0480